=== PATIENT | female | born 1990 | race Caucasian/White ===

== ENCOUNTER → 2019-02-23 | Outpatient (CLI) | payer OTHER ==
[2019-02-23 15:46] LABS: COMPLEMENT C3 156 MG/DL (90-180); COMPLEMENT C4 26 MG/DL (10-40); RHEUMATOID FACTOR QUANT < 10.0 IU/ML (<15.0)
[2019-02-24 17:17] LABS: THYROID PEROXIDASE ANTIBODY < 28.0 U/ML (<60.0)
[2019-02-24 17:18] LABS: THYROGLOBULIN ANTIBODY 17.7 U/ML (<60.0)
== END ==
LOC: M LAB 14:56
PROVIDERS: ATTEND Allergy & Immunology Allergy
DX: L50.1 Idiopathic urticaria (principal)